=== PATIENT | female | born 1940 | race Caucasian/White ===

== ENCOUNTER 2017-02-15 10:03 | Observation (INO) | payer OTHER, BC ==
[2017-02-05 14:24] VITALS: BMI 23.0
--- NOTE | 2017-02-05 14:44 | PAT Medication Instructions ---
Service Date Feb 05, 2017. Current Home Medication List Multivitamin (Multivitamin), 1 TAB PO QAM Medication Instructions For Your Scheduled Surgery - Hold the following medications the morning of surgery: Multivitamin (Multivitamin), 1 TAB PO QAM Nothing to eat or drink after midnight If you have any questions please call us at [phone] or [phone] or [phone]
[2017-02-05 15:06] LABS: BASO % 0.5 %; BASO ABS # 0.04 K/uL (0-0.2); COMPLETE YES; EOS % 2.2 %; HEMATOCRIT 43.3 % (37-47); IG% 0.1 %; LYMPH % 24.9 %; LYMPH ABS # 1.82 K/uL (1.2-3.4); MEAN CELL VOLUME 95.6 fL (80-100); MEAN CORPUSCULAR HEMOGLOBIN 33.1 pg (25-34); MEAN CORPUSCULAR HGB CONC 34.6 g/dl (32-36); MEAN PLATELET VOLUME 10.1 fL (7.4-10.4); MONO % 8.2 %; NEUT % 64.1 %; PLATELET COUNT 258 K/uL (130-400); RED BLOOD COUNT 4.53 M/uL (4.2-5.4); WHITE BLOOD COUNT 7.31 K/uL (4.8-10.8)
[2017-02-15] VITALS (8 sets, daily range): BP systolic 118–138; BP diastolic 50–62; PULSE 54–76; TEMP 36.5–37; O2SAT 95–98; Ht 165.1 cm; Wt 64.8 kg
[~2017-02-15] VITALS: Ht 165.1 cm; Wt 64.8 kg
[~2017-02-15 10:03] MED LIST: ATROPINE SULFATE 0.1 MG/ML 5ML SYR IV PRN; CEFAZOLIN 2000 MG/60 ML D5W IV SCH; EpHEDrine SULFATE INJ 50 MG/ML AMP IV PRN; FENTANYL CITRATE INJ 50 MCG/1 ML 2 ML VIAL IV PRN; LACTATED RINGER'S 1000ML 1,000 ML IV SCH; MULT-506 PO; MoRPHine SULFATE 10 MG/ML CARP/VIAL IV PRN; ONDANSETRON INJ 2 MG/ML 2 ML VIAL IV PRN; TIMO0.5S35 OP
[2017-02-15] MEDS ORDERED: ATROPINE SULFATE 0.1 MG/ML 5ML SYR IV PRN (11:00)
[2017-02-15] MEDS ORDERED: FENTANYL CITRATE INJ 50 MCG/1 ML 2 ML VIAL IV PRN (11:00)
[2017-02-15] MEDS ORDERED: ONDANSETRON INJ 2 MG/ML 2 ML VIAL IV PRN ×2 (11:00→14:15)
[2017-02-15] MEDS ORDERED: EpHEDrine SULFATE INJ 50 MG/ML AMP IV PRN (11:00)
[2017-02-15] MEDS ORDERED: MIDAZOLAM HCL 1 MG/ML 2ML VIAL ONE (11:59)
[2017-02-15] MEDS ORDERED: FENTANYL CITRATE INJ 50 MCG/1 ML 2 ML VIAL ONE ×2 (11:59→13:14)
[2017-02-15] MEDS ORDERED: ROCURONIUM BROMIDE 10 MG/ML 5 ML VIAL ONE (11:59)
[2017-02-15] MEDS ORDERED: PROPOFOL IV EMULSION 10 MG/ML 20 ML VIAL IV ONE (11:59)
[2017-02-15] MEDS ORDERED: LIDOCAINE HCL 2% 2 ML VIAL (20MG/ML) ONE (11:59)
--- NOTE | 2017-02-15 12:08 | History & Physical Bridge Note ---
H&P Re-Evaluation Bridge Note: I have examined the patient, reviewed the History & Physical and in the interval since the performance of the History & Physical I have noted the following changes of clinical significance: No changes noted
[2017-02-15] MEDS ORDERED: BUPIVACAINE/EPINEPHRINE 0.5% MPF 1:200,000 30 ML VIAL ONE (12:38)
[2017-02-15] MEDS ORDERED: SULFANILAMIDE 15% CR 120 GM TUBE ONE (12:38)
[2017-02-15] MEDS ORDERED: PREMARIN VAG CRM 14 APPLN/30 GM TUBE ONE (12:39)
[2017-02-15] MEDS ORDERED: METHYLENE BLUE 0.5% 10 ML VIAL ONE (13:30)
[2017-02-15] MEDS ORDERED: DEXAMETHASONE SOD INJ 4 MG/ML VIAL ONE (13:30)
[2017-02-15] MEDS ORDERED: NEOSTIGMINE METHYLSULFATE 5 MG/5 ML SYR ONE (13:30)
[2017-02-15] MEDS ORDERED: ONDANSETRON INJ 2 MG/ML 2 ML VIAL ONE (13:30)
[2017-02-15] MEDS ORDERED: GLYCOPYRROLATE INJ 0.2 MG/ML VIAL ONE (13:30)
--- NOTE | 2017-02-15 13:44 | [facility] Post Operative Brief Note ---
Immediate Operative Summary Operative Date Feb 15, 2017. Pre-Operative Diagnosis uterine prolapse Post-Operative Diagnosis uterine prolapse Procedure(s) Performed total vaginal hysterectomy , cystoscopy Surgeon Dr Anna Melchor Patient Registration Rep Surgeon(s) Dr Lenny Mir Estimated Blood Loss 10 Findings grade 2-3 uterine prolapse. ovaries palpably small. cystoscopy findings with normal bladder filling and normal ureteral jets. high small cystocele noted. Fluids (cc crystalloids) 1000 Specimens A: Uterus, cervix Drains mtz Anesthesia general Complication(s) None Disposition Recovery Room / PACU
[2017-02-15] MEDS ORDERED: LACTATED RINGER'S 1000ML 1,000 ML IV SCH (14:12)
--- NOTE | 2017-02-15 14:14 | OPERATIVE REPORT ---
DATE OF OPERATION: 02/15/2017 PREOPERATIVE DIAGNOSIS: Uterine prolapse. POSTOPERATIVE DIAGNOSIS: Same. PROCEDURE: 1. Total vaginal hysterectomy 2. Cystoscopy. SURGEON: Dr. Anna Melchor. CHIEF INTERNAL AUDITOR: Dr. Mir. IV FLUIDS: 1000 mL. ESTIMATED BLOOD LOSS: 10 mL ANESTHESIA: General. FINDINGS: Small uterus with grade 2-3 descent. Ovaries palpably small. Cystoscopy findings with normal bladder filling and normal ureteral jets. High small midline cystocele noted and left unrepaired. INDICATIONS: A 76-year-old 2, para 2 with a history of uterine prolapse and findings of midline cystocele on exam who desired surgical management. The patient did not have a large appreciable cystocele on exam and therefore, a cystocele repair was possible but not likely. The patient declines oophrectomy and/or salpingectomy. She did not like the idea of pessary management. She does not want to travel outside the area for potential apex suspension. She wanted a local hysterectomy. DESCRIPTION OF PROCEDURE: The patient taken to the operating room and identified. After adequate general anesthesia was obtained, she was in dorsal lithotomy position and prepped and draped in the usual sterile fashion. The bladder was drained for clear yellow urine. A weighted speculum and anterior retractor were placed to visualize the cervix which was grasped in its anterior lip with an Allis clamp. A tenaculum was placed across the cervix and the bladder reflection was identified. The knife was used to create an incision at the cervix from the 9 o'clock to 3 o'clock position. Allis clamps were placed in the anterior vagina and with blunt and sharp dissection using Metzenbaum scissors, the anterior bladder was dissected from the underlying cervix, both sharply and bluntly. Bladder pillar tissue was grasped with Demetrice clamps on each side and were transected and sutured with 0 vicryl. The posterior colpotomy was then created sharply using the scissors and the posterior peritoneum was transfixed to the posterior vaginal cuff with an interrupted suture of 0 Vicryl. Marnie clamps were used to then further take the uterosacral ligament attachments on each side. These pedicles were transected and suture ligated with 0 Vicryl and tagged. The peritoneal cavity was entered into sharply anteriorly with care to avoid the bladder. Sequentially cardinal ligaments and broad ligament tissue were grasped annealing the anterior and posterior leaves of broad ligament. These pedicles were transected and suture ligated with 0 vicryl. The remaining tissue on each side at uterine ovarian, round ligament, fallopian tube complexes were cross clamped with Heaneys. The specimen was completely transected. These pedicles were suture transfixed with 0 Vicryl and tagged. There was a bleeding site along the left suture line that was grasped with an Allis clamp and with a single [id number] suture of 0 Vicryl, hemostasis was adequate. A moistened sponge stick was used in the vagina to look at all pedicle lines and there was no bleeding. The upper tagged sutures were trimmed. The vaginal cuff was then closed in a running interlocking fashion using 0 Vicryl and the tag suture pedicles that incorporated the uterosacral ligaments were tied across the midline to suspend the apex of the vagina. At this point, the anterior vaginal tissue was inspected for possible cystocele repair; however, it was deemed too small and high and therefore was left alone. The Crespo catheter had been removed. The cystoscopy took place with the findings as noted above. A new Crespo catheter was replaced. The vagina was packed with [place]-soaked vaginal packing. The patient was returned to the supine position. She was awoken from anesthesia and transferred to the recovery room in stable condition. All sponge, lap and needle counts were correct x2. I attest to the content of the Intraoperative Record and any orders documented therein. Any exceptions are noted below. TARAS
[2017-02-15] MEDS ORDERED: OXYCODONE/ACETAMINOPHEN 5-325 TAB PO PRN (14:15)
[2017-02-15] MEDS ORDERED: IBUPROFEN 600 MG TAB PO PRN (14:15)
[2017-02-15] MEDS ORDERED: KETOROLAC TROMETHAMINE 15 MG/ML VIAL IV. PRN (14:15)
[2017-02-15] MEDS ORDERED: NURSING VERBAL MED ORDER ONE (14:15)
--- NOTE | 2017-02-15 14:18 | Discharge Instructions ---
Discharge Instructions Date of Service Feb 15, 2017. Admission Reason for Admission: Uterine Prolapse, Cystocele Discharge Discharge Diagnosis / Problem: after surgery Discharge Goals Goal(s): Routine recovery after surgery Activity Recommendations Activity Limitations: as noted below . Instructions / Follow-Up Instructions / Follow-Up ACTIVITY RECOMMENDATIONS: Activity: * During the first week at home, your activity should be similar to that done at the hospital prior to discharge. Your primary activity is in-house walking interspersed with rest periods. Preparing lunch for yourself is acceptable. You may go up and down stairs. Try to stay up progressively longer periods of time to help regain your strength more quickly. * During the second week at home, activities should include some meal preparation, walking to strengthen abdominal muscles and riding in a car. You may drive a car and make brief shopping trips at the end of the second week at home. * NO heavy lifting for 6 weeks after surgery. * Sexual intercourse can usually be resumed about 6 weeks after surgery depending on findings at your post-operative examinations. Bathing: * Showers or baths are permissible. Sitting in four to six inches of hot water (sitz bath) is often comforting after vaginal surgery and is permitted at any time. A sitz bath at bedtime can also assist in a better night's sleep. SPECIAL CARE INSTRUCTIONS: The major discomforts related to surgery have now passed and progressive improvement will occur. The tight uncomfortable feeling in the abdominal, pelvic and back area will gradually fade away. Fatigue may take the longest to disappear; your energy level may take several weeks to return to normal. At times you may become frustrated or impatient over not feeling as well or doing as much as you'd like , but this is a normal reaction to surgery and will pass with time. Vaginal Discharge: * Odorous, blood-tinged or brownish discharge may be present for one to three weeks after surgery. * Pads should be used and not tampons. * Stitches may be passed vaginally. * Bleeding may be somewhat increased approximately two weeks after surgery, which is related to the stitches dissolving. * If bleeding becomes free flowing, notify our office at . Bowel Care: * Constipation after surgery is very common. Foods that promote bowel activity (bran, fruit, prune juice) should be included in your diet. * A capsule, DIALOSE-PLUS, can be purchased without a prescription and can be taken daily (one or two capsules) to assist in promoting bowel activity. * If you have had vaginal surgery involving your rectum, we will discuss this when discharged from the hospital. Temperature: * Any fever above 100.4 degrees F should be reported to our office at [phone]. FOLLOW-UP: Post-Operative Appointments: * Individual instructions will have been given about the timing of your first examination, but this is usually at 6 weeks postoperative. * You will need to call the office at soon after discharge to make the appointment for your post-op check-up if it has not already been scheduled. * Additional information regarding activity, sexual intercourse and when to return to work will be given at this appointment. WE WISH YOU A SPEEDY RECOVERY! Current Hospital Diet Patient's current hospital diet: Discharge Diet Recommended Diet: Regular Diet Procedures Procedures Performed: Total Vaginal Hysterectomy, Cystoscopy Pending Studies Studies pending at discharge: yes List of pending studies: pathology Medical Emergencies . Who to Call and When: Medical Emergencies: If at any time you feel your situation is an emergency, please call 911 immediately. . Non-Emergent Contact Non-Emergency issues call your: Litigation Manager . . "Provider Documentation" section prepared by Anna Melchor. VTE Core Measure Inpt VTE Proph given/why not?: Treatment not indicated
[2017-02-15] MEDS ORDERED: PROMETHAZINE HCL INJ 6.25 MG in SODIUM CHLORIDE 0.9% 50ML 50 ML IV SCH (14:30)
--- NOTE | 2017-02-15 14:36 | Anesthesiology Progress Note ---
Anesthesia Post Op Note Date & Time Feb 15, 2017 at 14:36 Vital Signs Pain Intensity: 0 Vital Signs Past 12 Hours Date Time Temp Pulse Resp B/P Pulse Ox O2 Delivery O2 Flow Rate FiO2 02/15/17 14:32 65 18 02/15/17 14:32 66 18 95 02/15/17 14:30 153/54 02/15/17 14:27 60 19 02/15/17 14:27 60 19 98 02/15/17 14:26 154/51 02/15/17 14:22 67 22 97 02/15/17 14:22 67 22 02/15/17 14:20 162/68 02/15/17 14:17 57 17 100 02/15/17 14:17 58 17 02/15/17 14:16 170/64 02/15/17 14:12 56 13 100 02/15/17 14:12 56 13 02/15/17 14:10 175/63 02/15/17 14:07 65 17 100 02/15/17 14:07 66 17 02/15/17 14:05 169/62 02/15/17 14:02 60 11 100 02/15/17 14:02 60 11 02/15/17 14:00 169/60 02/15/17 13:57 70 10 02/15/17 13:57 70 10 100 02/15/17 13:55 153/67 02/15/17 13:52 73 10 161/72 100 02/15/17 13:52 36.1 72 10 161/72 100 Mask 10 02/15/17 13:52 73 10 02/15/17 10:15 36.5 64 16 118/50 Room Air Notes Mental Status: alert / awake / arousable, participated in evaluation Pt Amnestic to Procedure: Yes Nausea / Vomiting: adequately controlled Pain: adequately controlled Airway Patency, RR, SpO2: stable & adequate BP & HR: stable & adequate Hydration State: stable & adequate Anesthetic Complications: no major complications apparent
[2017-02-15] MEDS: IV FLUIDS COMPLETED PRN (16:32)
[2017-02-15 20:36] LABS: HEMATOCRIT 37.2 % (37-47)
[2017-02-16 03:34] VITALS: BP 125/64; PULSE 67; TEMP 36.7; O2SAT 95
[2017-02-16] MEDS: IV FLUIDS COMPLETED PRN (06:16)
[2017-02-16] MEDS ORDERED: NURSING VERBAL MED ORDER ONE (06:30)
[2017-02-16 07:15] VITALS: BP 120/54; PULSE 60; TEMP 36.9; O2SAT 95
[2017-02-16 08:51] VITALS: BP 120/54; PULSE 60; TEMP 36.9; O2SAT 95
--- NOTE | 2017-02-16 09:07 | Progress Note ---
Progress Note Date of Service Feb 16, 2017. Progress Note s/ pt doing well, has voided even with packing in placed. eating. ambulating. is dressed and ready to go. o/ af vss cor rrr, lungs ctab, abd soft nt, nd, perineum packing removed. no active bleeding. ext nt calves a/ pod #1s/p TVH p/ doing well and ready for discharge. if voiding well, ok to go home. instructions and f/u reviewed. does not want stronger pain meds. just plans to use tylenol and motrin for pain. f/u 6wks. no heavy lifting stressed.
== END 2017-02-16 09:45 | disposition home or self-care (01) ==
LOC: C.ACU 10:03 → C.MS4N 10:40 → UNDOADMOB 14:15 → C.MS4N 14:15
PROVIDERS: ADMIT Obstetrics & Gynecology; ATTEND Obstetrics & Gynecology
DX: N81.4 Uterovaginal prolapse, unspecified (principal); N81.11 Cystocele, midline; M81.0 Age-related osteoporosis without current pathological fracture; Z86.19 Personal history of other infectious and parasitic diseases; Z82.49 Family history of ischemic heart disease and other diseases of the circulatory system; Z83.49 Family history of other endocrine, nutritional and metabolic diseases

== ENCOUNTER → 2017-04-25 | Outpatient (CLI) | payer OTHER, BC ==
[~2017-04-25] MED LIST changes: -ATROPINE SULFATE 0.1 MG/ML 5ML SYR IV PRN; -CEFAZOLIN 2000 MG/60 ML D5W IV SCH; -EpHEDrine SULFATE INJ 50 MG/ML AMP IV PRN; -FENTANYL CITRATE INJ 50 MCG/1 ML 2 ML VIAL IV PRN; -LACTATED RINGER'S 1000ML 1,000 ML IV SCH; -MoRPHine SULFATE 10 MG/ML CARP/VIAL IV PRN; -ONDANSETRON INJ 2 MG/ML 2 ML VIAL IV PRN
[2017-04-25 11:25] LABS: CHOLESTEROL/HDL RATIO 3.7
== END | disposition home or self-care (01) ==
LOC: C.LABBC 09:00
PROVIDERS: ATTEND Family Medicine
DX: Z00.00 Encounter for general adult medical examination without abnormal findings (principal)

== ENCOUNTER 2017-05-09 13:16 | Emergency (ER) | payer OTHER, BC ==
[~2017-05-09] VITALS: Ht 160 cm; Wt 65.5 kg
[2017-05-09 13:20] VITALS: TEMP 36.7; Ht 160 cm; Wt 65.5 kg
[2017-05-09] MEDS ORDERED: GELATIN SPONGE 12-7MM EXT ONE (13:45)
[2017-05-09 14:21] VITALS: BP 132/64; PULSE 62; O2SAT 99
--- NOTE | 2017-05-09 22:54 | EMERGENCY ROOM VISIT NOTE ---
ED Visit Note First contact with patient: 13:24 Chief Complaint: Laceration. History of Present Illness: Ms. Lane is a 77-year-old white female who ambulates into the ED complaining of a laceration to the posterior aspect of the right forearm. Patient reports she was walking in her house early this morning at approximately 4:00 am, 10 hours ago, bumped into a wall and sustained a soft tissue injury. She cleansed the wound after the injury and has attempted to control bleeding but reports he continues to bleed. She has not identified any aggravating or alleviating factors related to the bleeding. She reports she has attempted direct pressure without success. She denies any associated symptoms including pain in the area of her soft tissue injury, elbow pain, wrist pain, arm weakness/numbness/tingling. Review of Systems: As noted above in history of present illness. Past Medical History: Status post hysterectomy, right rotator cuff surgery. Current Medications: Multivitamins, timolol maleate ophthalmic. Allergies to Medications: Patient denies. Social History: Patient is currently retired; she lives alone and feels safe in her home environment; she admits to tobacco use and denies alcohol use. Tetanus Immunization Status: Patient was unsure. Physical Examination: Vital Signs: Date Time Temp Pulse Resp B/P (MAP) Pulse Ox O2 Delivery O2 Flow Rate FiO2 05/09/17 14:21 62 16 132/64 99 05/09/17 13:20 36.7 66 18 139/66 99 Room Air GENERAL: 77-year-old female in no acute distress, nontoxic-appearing, afebrile and hemodynamically stable. NEUROLOGICAL: Awake, alert and oriented to person, place and time. Answering questions appropriately and following commands. Normal gait. Good hand eye coordination. No focal motor or sensory deficits. SKIN: Warm, dry and pink. Right Forearm: Over the posterior aspect of the forearm in the mid forearm patient has a round 1 cm skin tear. Minimal bleeding at this time. RIGHT UPPER EXTREMITY: No gross bony deformity. The tenderness in the elbow, forearm or wrist. Full range of motion of the elbow, wrist and forearm. Soft tissue injury as noted above. Throughout the hand the skin was warm and pink and capillary refill is brisk. She is able to distinguish light sensations through all dermatomes. ED Course: Patient is assessed as noted above. Patient's medication list was reviewed. Patient was offered tetanus update or follow-up with her PCP; she would like to follow-up with her PCP. Wound Repair: Complexity: Basic Verbal consent was obtained after the risks and benefits were explained. The skin was prepped with betadine and a sterile field set. The wound was explored for foreign bodies and none found. Copious irrigation was performed using sterile saline. With direct pressure the bleeding subsided, but appeared continued to lose. A small flap was debrided off the skin tear. A small piece of [place] was placed over the wound The wound was bandaged with sterile dressings. No complications and the patient tolerated the procedure well. Patient was educated about tonight's findings and instructed on her treatment plan; she verbalizes understanding and agreement with this plan. Clinical Impression: Skin tear of the right forearm. Disposition: Patient discharged home in stable condition; prior to departure he was reassessed and subjectively reported she was still pain free. Plan: Comfort measures, wound care, and signs of infection were discussed with the patient. Patient was encouraged to contact her PCP to determine her tetanus immunization status. Patient was encouraged to follow-up with PCP or return to the ED for signs of infection or any new/concerning symptoms.
== END 2017-05-09 14:22 | disposition home or self-care (01) ==
LOC: C.EDB 13:19
DX: S51.811A Laceration without foreign body of right forearm, initial encounter (principal); W22.01XA Walked into wall, initial encounter; Y92.019 Unspecified place in single-family (private) house as the place of occurrence of the external cause; Z72.0 Tobacco use

== ENCOUNTER → 2017-06-11 | Outpatient (CLI) | payer OTHER, BC ==
--- NOTE | 2017-06-11 13:31 | MAMMOGRAPHY REPORT ---
BILATERAL DIGITAL SCREENING MAMMOGRAM WITH CAD: 06/11/2017 CLINICAL HISTORY: Routine screening. Patient has no complaints. TECHNIQUE: Bilateral CC and MLO views were obtained. Current study was also evaluated with a Compute r Aided Detection (CAD) system. COMPARISON: Comparison is made to exams dated: 04/04/2016 mammogram, 03/10/2015 mammogram, 02/27/2014 m ammogram, 02/11/2013 mammogram, 02/07/2012 mammogram, and 12/18/2010 mammogram - [facility]. BREAST COMPOSITION: There are scattered areas of fibroglandular density in both breasts. FINDINGS: There are a few benign coarse calcifications in the breasts. No suspicious mass, siebel architect ural distortion or cluster of suspicious microcalcifications is seen. IMPRESSION: ACR BI-RADS CATEGORY 1: NEGATIVE There is no mammographic evidence of malignancy. A 1 year screening mammogram is recommended. The pa tient will receive written notification of the results. Approximately 10% of breast cancers are not detected with mammography. A negative mammographic report should not delay biopsy if a clinically suggestive mass is present. Rupa Mercado M.D. ay/:06/11/2017 12:38:51 Radiographer: Laurie KIMBROUGH(Emre)(M), [facility] letter sent: Normal 1/2 BI-RADS Code: ACR BI-RADS Category 1: Negative
== END | disposition home or self-care (01) ==
LOC: C.MAMM 11:32
PROVIDERS: ATTEND Family Medicine
DX: Z12.31 Encounter for screening mammogram for malignant neoplasm of breast (principal)

== ENCOUNTER → 2018-06-12 | Outpatient (CLI) | payer OTHER, BC ==
[~2018-06-12] MED LIST changes: +TIMO-31 OP; -TIMO0.5S35 OP
--- NOTE | 2018-06-12 16:00 | MAMMOGRAPHY REPORT ---
BILATERAL DIGITAL SCREENING MAMMOGRAM TOMOSYNTHESIS WITH CAD: 06/12/2018 CLINICAL HISTORY: Routine screening. Patient has no complaints. TECHNIQUE: The study was acquired using full field digital technology and interpreted from soft copy. Breast tomosynthesis in addition to standard 2D mammography was performed. Current study was also ev aluated with a Computer Aided Detection (CAD) system. COMPARISON: Comparison is made to exams dated: 06/11/2017 mammogram - [facility], mammogram, 03/10/2015 mammogram, 02/27/2014 mammogram, 02/11/2013 mammogram, and 02/07/2012 mamm ogram - [facility]. BREAST COMPOSITION: There are scattered areas of fibroglandular density in both breasts. FINDINGS: No suspicious masses, calcifications, or areas of architectural distortion are noted in either breast . There has been no significant interval change compared to prior exams. Scattered bilateral benign-a ppearing calcifications are not significantly changed. IMPRESSION: ACR BI-RADS CATEGORY 2: BENIGN There is no mammographic evidence of malignancy. A 1 year screening mammogram is recommended.( [id number]) The patient will receive written notification of the results. Some breast cancers are not detected with mammography. A negative mammographic report should not alex y biopsy if a clinically suggestive mass is present. Corin Maravilla M.D. ah/:06/12/2018 12:45:56 City Clerk: RT Rian(Emre)(M), [facility] letter sent: Normal 1/2 BI-RADS Code: ACR BI-RADS Category 2: Benign
== END | disposition home or self-care (01) ==
LOC: C.MAMM 10:12
PROVIDERS: ATTEND Family Medicine
DX: Z12.31 Encounter for screening mammogram for malignant neoplasm of breast (principal)

== ENCOUNTER → 2018-06-19 | Outpatient (CLI) | payer OTHER, BC ==
--- NOTE | 2018-06-19 12:36 | DIAGNOSTIC IMAGING REPORT ---
L-SPINE MIN 4 VIEWS ROUTINE HISTORY: 78 years-old Female LOW BACK PAIN acute low back pain COMPARISON: None available TECHNIQUE: 5 views of the lumbar spine FINDINGS: Moderately demineralized appearance of the bones. 60% anterior endplate compression deformity of the L1 vertebral body without retropulsion. No additional lumbar spine fracture or subluxation. Moderate to severe intervertebral disc space narrowing at L5-S1. Severe facet arthropathy of the lower lumbar spine. No spondylolysis or spondylolisthesis. Moderate formed stool about the colon. IMPRESSION: 1. 60% anterior endplate compression deformity of the L1 vertebral body without retropulsion is age indeterminate without comparison. Correlate with point tenderness to exclude acute injury. 2. Moderately demineralized appearance of the bones with degenerative changes as above. The above report was generated using voice recognition software. It may contain grammatical, syntax or spelling errors. Electronically signed by: Torey Boateng M.D. 06/19/2018 12:35 PM Dictated Date/Time: 06/19/2018 12:33 PM
== END | disposition home or self-care (01) ==
LOC: C.RADBC 11:00
PROVIDERS: ATTEND Family Medicine
DX: M54.5 Low back pain (principal)